=== PATIENT | female | born 1985 | race Caucasian/White ===

== ENCOUNTER 2020-11-23 19:55 | Emergency (ER) | payer MEDICAID, OTHER ==
[2020-11-23] MEDS ORDERED: Benzocaine 20% Spray 60 ML CAN ONE (21:46)
[2020-11-23] MEDS ORDERED: Dexamethasone 10 MG/ML VIAL ONE (22:23)
[2020-11-23] MEDS ORDERED: cefTRIAXone\\ROCEPHIN 2 GM VIAL ONE (22:23)
== END 2020-11-23 22:11 | disposition home or self-care (01) ==
LOC: BURERS 19:55
DX: J36 Peritonsillar abscess (principal); E10.9 Type 1 diabetes mellitus without complications; F17.210 Nicotine dependence, cigarettes, uncomplicated
CPT/HCPCS: 96374; 96375; J0696; J1100